=== PATIENT | male | born 1940 | race Two or more races ===

== ENCOUNTER 2017-12-23 14:25 | Inpatient (IN) | payer OTHER ==
[~2017-12-23] VITALS: Ht 170.2 cm; Wt 104.3 kg
[~2017-12-23 14:25] MED LIST: ATENOLOL25 MG PO; DAFLONEX 600 MG1 TAB PO; DITROPAN5 MG PO; GLUCOPHAGE XR750 MG PO; SYNTHROID112 MCG PO; ZANTAC150 M2 PO; ZOCOR40 MG PO
== END 2017-12-31 13:44 | disposition home or self-care (01) | DRG 603 ==
LOC: MEDI 14:25
PROC: B44HZZZ Ultrasonography of Bilateral Lower Extremity Arteries (ICD-10-PCS; principal; 2017-12-24)
PROC: B54DZZZ Ultrasonography of Bilateral Lower Extremity Veins (ICD-10-PCS; 2017-12-24)
PROC: B246ZZZ Ultrasonography of Right and Left Heart (ICD-10-PCS; 2017-12-24)
DX: L03.116 Cellulitis of left lower limb (principal); I50.20 Unspecified systolic (congestive) heart failure; I35.0 Nonrheumatic aortic (valve) stenosis; G47.33 Obstructive sleep apnea (adult) (pediatric); I48.2 Chronic atrial fibrillation; K29.60 Other gastritis without bleeding; I11.0 Hypertensive heart disease with heart failure; E66.01 Morbid (severe) obesity due to excess calories; I83.893 Varicose veins of bilateral lower extremities with other complications; D64.89 Other specified anemias; I87.2 Venous insufficiency (chronic) (peripheral)

== ENCOUNTER 2019-01-16 14:31 | Outpatient (CLI) | payer OTHER | END 2019-01-16 17:00 | disposition home or self-care (01) | LOC: SONOGRAMA 14:31 | DX: D17.79 Benign lipomatous neoplasm of other sites (principal) ==

== ENCOUNTER 2019-05-02 11:47 | Inpatient (IN) | payer OTHER ==
[~2019-05-02] VITALS: Ht 170.2 cm; Wt 124.7 kg
[2019-05-03] MEDS ORDERED: INTESTINEX680 M1 PO (08:20)
[2019-05-03] MEDS ORDERED: PYRIDOXINE HCL100 MG PO (08:21)
[2019-05-03] MEDS ORDERED: TAMSULOSIN HCL0.4 MG PO (08:21)
[2019-05-03] MEDS ORDERED: CLOPIDOGREL BIS75 MG PO (08:21)
== END 2019-05-19 20:51 | disposition home or self-care (01) | DRG 593 ==
LOC: MEDJ 11:47
PROVIDERS: ADMIT Internal Medicine Cardiovascular Disease
PROC: 8E0ZXY6 Isolation (ICD-10-PCS; principal; 2019-05-02)
PROC: 05H533Z Insertion of Infusion Device into Right Subclavian Vein, Percutaneous Approach (ICD-10-PCS; 2019-05-06)
DX: L97.818 Non-pressure chronic ulcer of other part of right lower leg with other specified severity (principal); L03.116 Cellulitis of left lower limb; I50.30 Unspecified diastolic (congestive) heart failure; L97.828 Non-pressure chronic ulcer of other part of left lower leg with other specified severity; I11.0 Hypertensive heart disease with heart failure; I35.0 Nonrheumatic aortic (valve) stenosis; I48.91 Unspecified atrial fibrillation; Z79.01 Long term (current) use of anticoagulants; F43.21 Adjustment disorder with depressed mood; G47.39 Other sleep apnea; Z95.4 Presence of other heart-valve replacement; D64.89 Other specified anemias; I87.2 Venous insufficiency (chronic) (peripheral); I73.89 Other specified peripheral vascular diseases; I83.018 Varicose veins of right lower extremity with ulcer other part of lower leg; I83.028 Varicose veins of left lower extremity with ulcer other part of lower leg; E11.9 Type 2 diabetes mellitus without complications; E66.3 Overweight; B95.61 Methicillin susceptible Staphylococcus aureus infection as the cause of diseases classified elsewhere; B96.4 Proteus (mirabilis) (morganii) as the cause of diseases classified elsewhere; B96.5 Pseudomonas (aeruginosa) (mallei) (pseudomallei) as the cause of diseases classified elsewhere
CPT/HCPCS: 240

== ENCOUNTER 2019-07-16 17:15 | Inpatient (IN) | payer OTHER ==
[~2019-07-16] VITALS: Ht 170.2 cm; Wt 117.9 kg
[~2019-07-16 17:15] MED LIST changes: +CLOPIDOGREL BIS75 MG PO; +INTESTINEX680 M1 PO; +PYRIDOXINE HCL100 MG PO; +TAMSULOSIN HCL0.4 MG PO
--- NOTE | 2019-07-16 18:51 | NUR ---
SE OBSERVA CON AMBAS PIERNAS CON ULCERAS, LAS CUALES CON EXUDADO, TRUNG CUBIERTAS POR CURACION. REFIERE QUE DR. MARCUM LE INDICO QUE FUERA A ER PARA EVALUACION.
--- NOTE | 2019-07-16 20:59 | NUR ---
BAJO MEDIDAS ASEPTICAS AL PACIENTE SE LE CANALIZA Y SE LE ELISABETH MUESTRAS DE [place] PARA REALIZAR LABORATORIO. SE LE OLY SALINE LOCK Y SE LE ADMINISTRA LASIX 20MG IV Y MERREM 500MG IV. -RSMALL
--- NOTE | 2019-07-16 21:00 | NUR ---
SE COGE MUESTRAS DE CULTIVOS PIES Y SE LE TAPA ULCERA CON TAPE ELASTICO.
--- NOTE | 2019-07-17 00:41 | NUR ---
SE RECIBE PACIENTE DEL TURNO ANTERIOR ALERTA Y ORIENTADO X3 EN CAMA CON BARANDAS ELEVADAS Y CABEZERA 30 GRADOS.AREA DE VENOPUNCION PATENTE Y SEVERIANO DE EDEMA O ERITEMA.
== END 2019-07-24 15:18 | disposition home or self-care (01) | DRG 593 ==
LOC: ER 17:15 → MEDJ 07-17 10:08 → SEC-K 07-17 10:08 → MEDJ 07-17 11:53
PROVIDERS: ADMIT Internal Medicine Cardiovascular Disease
PROC: 8E0ZXY6 Isolation (ICD-10-PCS; principal; 2019-07-17)
DX: L97.828 Non-pressure chronic ulcer of other part of left lower leg with other specified severity (principal); I83.218 Varicose veins of right lower extremity with both ulcer of other part of lower extremity and inflammation; I83.228 Varicose veins of left lower extremity with both ulcer of other part of lower extremity and inflammation; I50.30 Unspecified diastolic (congestive) heart failure; L97.818 Non-pressure chronic ulcer of other part of right lower leg with other specified severity; I83.893 Varicose veins of bilateral lower extremities with other complications; B96.89 Other specified bacterial agents as the cause of diseases classified elsewhere; B95.61 Methicillin susceptible Staphylococcus aureus infection as the cause of diseases classified elsewhere; B96.4 Proteus (mirabilis) (morganii) as the cause of diseases classified elsewhere; I11.0 Hypertensive heart disease with heart failure; F43.21 Adjustment disorder with depressed mood; I48.0 Paroxysmal atrial fibrillation; E11.9 Type 2 diabetes mellitus without complications

== ENCOUNTER 2020-06-26 21:40 | Inpatient (IN) | payer OTHER ==
[~2020-06-26] VITALS: Ht 170.2 cm; Wt 158.8 kg
--- NOTE | 2020-06-26 22:00 | NUR ---
PTE SE RECIBE POR BODY TRAUMA EN LA CADERA DERECHA POR LYNN CAIDA EN LA CASA REFIERE PARAMEDICO Y PTE.
--- NOTE | 2020-06-26 22:09 | NUR ---
NOTA PTE REFIERE TIENE LYNN ULCERA EN EL PIE DERECHO CELULITIS EN EL PIE NIKKI Y LYNN VALVULA EN EL RUTHIE.
--- NOTE | 2020-06-26 22:28 | NUR ---
EVALUA PTE. SE ORIENTA A PTE SOBRE TX MEDICO. PTE REFIERE COMPRENDER. PTE REHUSA MEDICACION DE DOLOR. SE NOTIFICAN STEPHANIE X.
--- NOTE | 2020-06-27 01:32 | NUR ---
PACIENTE ALERTA Y ORIENTADO EN LAS CHANTAL ESFERAS, CECELIA DEVRIES ELISABETH MUESTRAS DE [place] BAJO MEDIDAS ASEPTICAS ORIENTA PACIENTE SOBRE PROCEDIMIENTO Y SOBRE CONSULTA CON MEDICINA INTERNA PACIENTE VERBALIZA ENTENDER.
== END 2020-07-22 15:04 | disposition designated cancer center or children's hospital (05) | DRG 536 ==
LOC: ER 21:40 → SURG 06-27 06:51 → SURH 07-09 19:01
PROVIDERS: ADMIT Internal Medicine Cardiovascular Disease; ATTEND Internal Medicine Cardiovascular Disease
PROC: 0T9B70Z Drainage of Bladder with Drainage Device, Via Natural or Artificial Opening (ICD-10-PCS; principal; 2020-06-27)
PROC: 05HY33Z Insertion of Infusion Device into Upper Vein, Percutaneous Approach (ICD-10-PCS; 2020-06-27)
PROC: 2W6LX0Z Traction of Right Lower Extremity using Traction Apparatus (ICD-10-PCS; 2020-06-28)
PROC: 30233N1 Transfusion of Nonautologous Red Blood Cells into Peripheral Vein, Percutaneous Approach (ICD-10-PCS; 2020-07-02)
DX: S72.141A Displaced intertrochanteric fracture of right femur, initial encounter for closed fracture (principal); I87.333 Chronic venous hypertension (idiopathic) with ulcer and inflammation of bilateral lower extremity; L97.821 Non-pressure chronic ulcer of other part of left lower leg limited to breakdown of skin; L97.811 Non-pressure chronic ulcer of other part of right lower leg limited to breakdown of skin; L03.116 Cellulitis of left lower limb; I11.0 Hypertensive heart disease with heart failure; I48.91 Unspecified atrial fibrillation; D64.9 Anemia, unspecified; E66.01 Morbid (severe) obesity due to excess calories; E11.9 Type 2 diabetes mellitus without complications; F43.21 Adjustment disorder with depressed mood; F43.22 Adjustment disorder with anxiety; G47.39 Other sleep apnea; B95.62 Methicillin resistant Staphylococcus aureus infection as the cause of diseases classified elsewhere; Z20.828 Contact with and (suspected) exposure to other viral communicable diseases; Z95.4 Presence of other heart-valve replacement; Z79.01 Long term (current) use of anticoagulants